=== PATIENT | male | born 1995 | race Two or more races ===

== ENCOUNTER 2017-04-20 19:44 | Emergency (ER) | payer SELFPAY ==
[2017-04-20 19:53] VITALS: BP 117/72; BMI 27.5
--- NOTE | 2017-04-20 20:54 | DR.GENAD ---
HPI - PCP Primary Care Physician: LAURA - Complaint/Symptoms Chief Complaint:: HEADACHE AND VOMITED 3 TIMES TODAY - Source History Provided: Patient - Mode of Arrival Mode of Arrival: Ambulatory - Timing Onset of Chief Complaint: 04/20/17 PMH - PMH Past Medical History: No Past Surgical History: No - Family History History of Family Medical Conditions: No - Social History Does patient currently use any type of tobacco product: No Have you used tobacco products in the last 12 months: No Type of Tobacco Use: None Does any household member use tobacco: No Alcohol Use: None Do you use any recreational Drugs:: No Lives With: Family Lives Where: Home - infectious screening In the last 2 months have you had wt loss of >10#?: NO Have you had fever, night sweats or hemotysis?: No Have you traveled outside the country in the last 6 months?: No Isolation: Standard PE - Vital Signs Vitals: Temperature 98.6 F Pulse Rate 61 Respiratory Rate 18 Blood Pressure 117/72 O2 Sat by Pulse Oximetry 99 - Discharge Plan Condition: Stable - Follow ups/Referrals Follow ups/Referrals: LAURA,None [Primary Care Provider] - 3 days - Instructions
== END 2017-04-20 23:17 | disposition left against medical advice (07) ==
LOC: ER 20:12
DX: R51 Headache (principal)
CPT/HCPCS: 99281